=== PATIENT | female | born 1990 | race Caucasian/White ===

== ENCOUNTER 2016-08-01 20:46 | Emergency (ER) | payer OTHER ==
[2016-08-01] MEDS ORDERED: IOPAMIDOL 370 (76%) 100 ML VIAL IV ONE (20:47)
[2016-08-01 21:51] LABS: SPECIFIC GRAVITY 1.025 (1.001-1.030); URINE BILIRUBIN NEGATIVE (NEGATIVE); URINE BLOOD NEGATIVE (NEGATIVE); URINE GLUCOSE (UA) NEGATIVE (NEGATIVE); URINE LEUKOCYTE ESTERASE NEGATIVE (NEGATIVE); URINE NITRITE NEGATIVE (NEGATIVE); URINE PROTEIN NEGATIVE (NEGATIVE); URINE UROBILINOGEN NORMAL (0-1 mg/dl)
[2016-08-01 21:53] LABS: HCG,QUALITATIVE URINE NEGATIVE
[2016-08-01 21:55] LABS: URINE APPEARANCE CLEAR; URINE COLOR AMBER
[2016-08-02 01:18] LABS: ABSOLUTE NEUTROPHIL COUNT 3.5 K/mm3 (1.8-7.7); BASO # 0.1 K/mm3 (0.0-0.2); BASO % 0.8 % (0.2-1.0); EOS # 0.3 (0.0-0.5); EOS % 3.8 % (0.9-2.9); HEMOGLOBIN 13.7 gm/l (12.0-16.0); IMM NEUT% 0.1 % (0-1); LYMPH # 2.8 (1.0-4.8); LYMPH % 36.9 % (15-45); MEAN CELL VOLUME 96.9 fl (81.0-99.0); MEAN CORPUSCULAR HEMOGLOBIN 33.2 pg (27.0-31.0); MEAN CORPUSCULAR HGB CONC 34.3 g/dl (33.0-37.0); MEAN PLATELET VOLUME 10.9 fl (7.4-10.4); MONO # 0.9 (0.0-0.8); MONO % 12.4 % (4-12); PLATELET COUNT 239 K/mm3 (130-400); RED CELL DISTRIBUTION WIDTH 11.6 % (11.5-14.5)
[2016-08-02 01:36] LABS: CALCIUM 10.5 mg/dL (8.6-10.3)
[2016-08-02] MEDS ORDERED: LACTATED RINGERS 1,000 ML ONE (01:56)
[2016-08-02] MEDS ORDERED: PHENAZOPYRIDINE HCL 200 MG TABLET ONE (02:50)
--- NOTE | 2016-08-02 08:08 | CT ---
Name: MARBELLA SUÁREZ Exam: CT abdomen pelvis with contrast Comparison: None History: Pelvic pain and right flank pain Procedure: Helical CT using multidetector technique was applied to the abdomen and pelvis during intravenous administration of 100 cc Isovue-[id number]. No oral contrast was given per ordering physician. An automated dose reduction technique was used to minimize patient radiation dose. Findings: CT abdomen (contrast enhanced): Lung bases are clear. Heart is nonenlarged. Fatty changes of liver are suspected. Gallbladder is nondistended. There is no suspicious biliary dilation. Pancreas, spleen, adrenal glands, kidneys, aorta, IVC and portal vein are normal. Stomach and small bowel are normal. There is moderate stool within the colon. There is no free air, free fluid or suspicious adenopathy. Tiny fat filled umbilical hernia is present. Regional skeleton is unremarkable. CT pelvis (contrast enhanced): Bladder is nearly empty. Uterus is slightly to the right. Ovaries are symmetric. Mild/moderate stool is present. Small bowel is nondilated. The appendix is not clearly identified however there is no pericecal stranding. Trace free fluid is present. There is no free air, abscess or adenopathy. Impression: 1. Nonvisualization the appendix. However, there is no pericecal stranding. 2. No small bowel obstruction 3. Moderate stool within the colon 4. Findings suspicious for fatty changes of liver Note: Findings were transmitted to the emergency department from [facility] 0153 hours
[2016-08-04 15:12] LABS: CHLAMYDIA BD Negative (Negative); N.GONORRHOEAE BD Negative (Negative); SOURCE Urine (())
== END 2016-08-02 03:29 | disposition home or self-care (01) ==
LOC: ED 20:46
DX: R30.0 Dysuria (principal); E03.9 Hypothyroidism, unspecified; F32.9 Major depressive disorder, single episode, unspecified; F41.9 Anxiety disorder, unspecified; Z79.899 Other long term (current) drug therapy; Z88.8 Allergy status to other drugs, medicaments and biological substances
CPT/HCPCS: 87491; 87591; 81025; 85025; 80048; 81003; 74177; 99284 ×2; A9270; J7120; Q9967